=== PATIENT | female | born 2000 | race Hispanic/Latino ===

== ENCOUNTER 2023-06-04 08:02 | Emergency (ER) | payer SELFPAY ==
[~2023-06-04] VITALS: Ht 154.9 cm; Wt 90.7 kg
[2023-06-04] MEDS ORDERED: ONDANSETRON HCL INJ 2MG/ML 2ML 2 MG/ML VIAL IV STA (08:12)
[2023-06-04] MEDS ORDERED: SODIUM CHLORIDE 0.9% 1000ML 1,000 ML IV STA (08:12)
[2023-06-04] MEDS ORDERED: DICYCLOMINE HCL 20 MG/2 ML VIAL IM ONE (08:15)
[2023-06-04 08:31] LABS: BASOPHILS % 0.2 % (0.0-1.0); EOSINOPHILS # (AUTO) 0.1 (0.0-0.4); EOSINOPHILS % 1.2 % (0.0-6.0); HEMATOCRIT 40.4 % (34.2-44.1); HEMOGLOBIN 13.4 g/dL (12.0-16.0); LYMPHOCYTES # (AUTO) 2.7 (1.0-3.2); LYMPHOCYTES % 23.4 % (18.0-39.1); MEAN CORPUSCULAR HEMOGLOBIN 30.5 pg (28-32); MEAN CORPUSCULAR HGB CONC 33.2 g/dL (31-35); MEAN CORPUSCULAR VOLUME 91.8 fL (81-99); MONOCYTES # (AUTO) 0.9 (0.2-0.8); MONOCYTES % 7.4 % (4.4-11.3); NEUTROPHILS # (AUTO) 7.8 (2.1-6.9); NEUTROPHILS % 67.5 % (38.7-80.0); PLATELET COUNT 391 x10e3/uL (140-360); RED CELL DISTRIBUTION WIDTH 11.3 % (11.7-14.4); WHITE BLOOD COUNT 11.56 x10e3/uL (4.8-10.8)
[2023-06-04 08:36] LABS: BILIRUBIN,URINE NEGATIVE (NEGATIVE); CLARITY,URINE CLEAR (CLEAR); COLOR,URINE YELLOW (YELLOW); GLUCOSE, URINE NEGATIVE (NEGATIVE); KETONES,URINE NEGATIVE (NEGATIVE); LEUKOCYTE ESTERASE ,URINE NEGATIVE (NEGATIVE); NITRITE,URINE NEGATIVE (NEGATIVE); PH,URINE 5.5 (5 - 7); PROTEIN,URINE DIPSTICK NEGATIVE (NEGATIVE); URINE UROBILINOGEN 0.2 mg/dL (0.2 - 1)
[2023-06-04 08:39] LABS: BACTERIA,URINE FEW /HPF; EPITHELIAL CELLS,URINE MODERATE /LPF; MUCUS,URINE FEW (RARE); RBC,URINE 0-5 /HPF (0-5); WBC,URINE (MAN) 0-5 /HPF (0-5)
[2023-06-04 08:54] LABS: ALANINE AMINOTRANSFERASE 234 IU/L (0-55); ALBUMIN 4.1 g/dL (3.5-5.0); ALBUMIN/GLOBULIN RATIO 1.1 (0.8-2.0); ALKALINE PHOSPHATASE 79 IU/L (40-150); ANION GAP 13.1 mmol/L (8-16); BILIRUBIN,TOTAL 0.5 mg/dL (0.2-1.2); BLOOD UREA NITROGEN 7 mg/dL (7-26); BUN/CREATININE RATIO 9 (6-25); CALCIUM 9.6 mg/dL (8.4-10.2); CARBON DIOXIDE 25 mmol/L (22-29); CHLORIDE 104 mmol/L (98-107); CREATINE KINASE 69 IU/L (29-168); CREATININE, SERUM 0.76 mg/dL (0.57-1.11); EST GLOMERULAR FILTRATION RATE 114 ML/MIN (>=60); GLUCOSE 112 mg/dL (74-118); LIPASE 52 U/L (8-78); POTASSIUM 4.1 mmol/L (3.5-5.1); SODIUM 138 mmol/L (136-145)
[2023-06-04 09:03] LABS: TROPONIN I < 0.001 ng/mL (0-0.300)
[2023-06-04] MEDS ORDERED: IOPAMIDOL 370 MG/ML 100 ML INFUS..BTL INJ ONE (09:32)
[2023-06-04] MEDS ORDERED: DICYCLOMINE HCL20 MG PO (10:02)
[2023-06-04] MEDS ORDERED: PANTOPRAZOLE SO40 MG PO (10:02)
[2023-06-04 10:08] LABS: INR 0.98; PROTHROMBIN TIME 13.2 seconds (11.9-14.5)
[2023-06-04 10:21] LABS: PARTIAL THROMBOPLASTIN TIME 30.7 seconds (23.8-35.5)
[2023-06-04 10:39] VITALS: O2SAT 98
== END 2023-06-04 10:40 | disposition home or self-care (01) ==
LOC: ER 08:05
DX: R10.13 Epigastric pain (principal); K83.9 Disease of biliary tract, unspecified; N83.201 Unspecified ovarian cyst, right side; R11.2 Nausea with vomiting, unspecified; K76.0 Fatty (change of) liver, not elsewhere classified
CPT/HCPCS: 36415; 74177; 76705; 80053; 81001; 82550; 83690; 83735; 84484; 84702; 85025; 85610; 85730; 99284; C9113; J0500; J2405; J7030; Q9967

== ENCOUNTER 2024-04-24 01:54 | Emergency (ER) | payer SELFPAY ==
[~2024-04-24] VITALS: Ht 162.6 cm; Wt 72.6 kg
[~2024-04-24 01:54] MED LIST: DICYCLOMINE HCL20 MG PO; PANTOPRAZOLE SO40 MG PO
[2024-04-24 02:04] VITALS: PULSE 90; RESP 19; TEMP 98.5
[2024-04-24] MEDS ORDERED: IBUPROFEN 600 MG TAB PO STA (02:06)
[2024-04-24] MEDS ORDERED: KETOROLAC TROMETHAMINE 30 MG/ML VIAL ONE (02:18)
[2024-04-24] MEDS: KETOROLAC TROMETHAMINE 60 MG/2 ML VIAL IM ONE (02:51)
[2024-04-24 03:49] VITALS: BP 122/62; PULSE 60; RESP 19; O2SAT 100
== END 2024-04-24 03:31 | disposition home or self-care (01) ==
LOC: ER 01:59
DX: M25.511 Pain in right shoulder (principal); X50.0XXA Overexertion from strenuous movement or load, initial encounter; Y92.89 Other specified places as the place of occurrence of the external cause
CPT/HCPCS: 29240; 73030; 99283; J1885